=== PATIENT | male | born 1960 | race African-American/Black ===

== ENCOUNTER 2016-03-02 15:45 | Inpatient (IN) | payer OTHER ==
[2016-03-02 16:38] VITALS: BMI 35.7
--- NOTE | 2016-03-02 19:11 | HP ---
COWS - Scale Resting Pulse: 0= ID 80 or Below Sweatin= Chills/Flushing Restless Observation: 3= Extraneous Movement Pupil Size: 0= Normal to Room Light Bone or Joint Aches: 2= Severe Diffuse Aches Runny Nose/ Eye Tearin= Nasal Congestion GI Upset > 30mins: 2= Nausea/Diarrhea Tremor Observation: 2= Slight Tremor Visible Yawning Observation: 0= None Anxiety or Irritability: 2=Irritable/Anxious Goose Flesh Skin: 0=Smooth Skin COWS Score: 13 CIWA Score - CIWA Score Nausea/Vomitin-Mild Nausea/No Vomiting Muscle Tremors: 4-Moderate,w/Arms Extend Anxiety: 4-Mod. Anxious/Guarded Agitation: 4-Moderately Restless Paroxysmal Sweats: 1-Minimal Palms Moist Orientation: 0-Oriented Tacttile Disturbances: 0-None Auditory Disturbances: 0-None Visual Disturbances: 0-None Headache: 2-Mild CIWA-Ar Total Score: 16 Admission ROS BHS - HPI Chief Complaint: withdrawal sx Allergies/Adverse Reactions: Allergies Allergy/AdvReac Type Severity Reaction Status Date / Time No Known Drug Allergies Allergy Unknown Verified 11/03/15 20:49 History of Present Illness: 55 years old male with long history of alcohol opiate nicotine dependence, history of hypertension, denies mental illness is admitted to detox Exam Limitations: No Limitations - Ebola screening Have you traveled outside of the country in the last 21 days: No Have you had contact with anyone from an Ebola affected area: No Have you been sick,other than usual withdrawal symptoms: No Do you have a fever: No - Review of Systems Constitutional: Chills, Changes in sleep, Weight Stable EENT: reports: No Symptoms Reported Respiratory: reports: No Symptoms reported Cardiac: reports: No Symptoms Reported GI: reports: Diarrhea, Nausea, Poor Fluid Intake, Abdominal cramping : reports: No Symptoms Reported Musculoskeletal: reports: Back Pain, Joint Pain, Muscle Pain, Neck Pain Integumentary: reports: No Symptoms Reported Neuro: reports: Tremors Endocrine: reports: No Symptoms Reported Hematology: reports: No Symptoms Reported Psychiatric: reports: Judgement Intact, Mood/Affect Appropiate Other Systems: Reviewed and Negative Patient History - Patient Medical History Hx Anemia: No Hx Asthma: No Hx Chronic Obstructive Pulmonary Disease (COPD): No Hx Cancer: No Hx Cardiac Disorders: No Hx Congestive Heart Failure: No Hx Hypertension: Yes (last dose "years" ago) Hx Hypercholesterolemia: No Hx Pacemaker: No HX Cerebrovascular Accident: No Hx Seizures: No Hx Dementia: No Hx Diabetes: No Hx Gastrointestinal Disorders: No Hx Liver Disease: No Hx Genitourinary Disorders: No Hx Sexually Transmitted Disorders: No Hx Renal Disease (ESRD): No Hx Thyroid Disease: No Hx Human Immunodeficiency Virus (HIV): No (NEGATIVE 6 MONTHS AGO LAST 2014 NEGATIVE) Hx Hepatitis C: No Hx Depression: No (denies) Hx Suicide Attempt: No Hx Bipolar Disorder: No (denies) Hx Schizophrenia: No - Patient Surgical History Past Surgical History: No Hx Neurologic Surgery: No Hx Cataract Extraction: No Hx Cardiac Surgery: No Hx Lung Surgery: No Hx Breast Surgery: No Hx Breast Biopsy: No Hx Abdominal Surgery: No Hx Appendectomy: No Hx Cholecystectomy: No Hx Genitourinary Surgery: No Hx Orthopedic Surgery: No - PPD History Previous Implant?: Yes Documented Results: Negative w/o proof Implanted On Prior [facility] Admission?: Yes Date: 04/26/15 Results: 0MM PPD to be Administered?: No - Smoking Cessation Smoking history: Current every day smoker Have you smoked in the past 12 months: Yes Aproximately how many cigarettes per day: 20 Cigars Per Day: 0 Hx Chewing Tobacco Use: No Initiated information on smoking cessation: Yes 'Breaking Loose' booklet given: 03/02/16 - Substance & Tx. History Hx Alcohol Use: Yes Hx Substance Use: Yes Substance Use Type: Alcohol, Cocaine, Heroin Hx Substance Use Treatment: Yes - Substances Abused Alcohol Route: Oral Frequency: Daily Amount used: [id number] beer Age of first use: 14 Date of Last Use: 03/01/16 Heroin Route: Inhalation Frequency: Daily Amount used: 6 bags Age of first use: 16 Date of Last Use: 03/02/16 Family Disease History - Family Disease History Family Disease History: Diabetes: Father () Admission Physical Exam BHS - Vital Signs Vital Signs: Vital Signs - 24 hr 03/02/16 16:34 Temperature 97.1 F L Pulse Rate 71 Respiratory 18 Rate Blood Pressure 115/84 - Physical General Appearance: Yes: Nourished, Appropriately Dressed, Moderate Distress HEENTM: Yes: Hearing grossly Normal, Normal ENT Inspection, Normocephalic, Normal Voice Respiratory: Yes: Chest Non-Tender, Lungs Clear, Normal Breath Sounds, No Respiratory Distress, No Accessory Muscle Use Neck: Yes: Supple, Trachea in good position Breast: Yes: Breasts Symetrical Cardiology: Yes: Regular Rhythm, Regular Rate, S1, S2 Abdominal: Yes: Non Tender, Soft Genitourinary: Yes: Within Normal Limits Back: Yes: Normal Inspection Musculoskeletal: Yes: full range of Motion, Gait Steady, Back pain, Muscle Pain Extremities: Yes: Normal Range of Motion, Non-Tender, Tremors, Other (history of knee pain treated with neurontin last dose "many months ago") Neurological: Yes: Alert, Motor Strength 5/5, Normal Mood/Affect, Normal Response Integumentary: Yes: Warm, Moist Lymphatic: Yes: Within Normal Limits - Diagnostic (1) Alcohol dependence with uncomplicated withdrawal Current Visit: Yes Status: Acute (2) Opioid dependence with withdrawal Current Visit: Yes Status: Acute (3) Hypertension Current Visit: Yes Status: Acute Qualifiers: Hypertension type: essential hypertension Qualified Code(s): I10 - Essential (primary) hypertension Comment: not on medication bp 115/84 upon admission (4) Nicotine dependence Current Visit: Yes Status: Acute Qualifiers: Nicotine product type: cigarettes Substance use status: in withdrawal Qualified Code(s): F17.213 - Nicotine dependence, cigarettes, with withdrawal Cleared for Admission S - Detox or Rehab [facility] Level of Care: Medically Managed Detox Regimen/Protocol: Methadone/Librium [facility] Breath Alcohol Content Breath Alcohol Content: 0 Urine Drug Screen - Results Drug Screen Negative: No Urine Drug Screen Results: ANTHONY-Cocaine, OPI-Opiates
[2016-03-02] MEDS ORDERED: MAGNESIUM HYDROX 2400MG/30ML ORAL SUSPENSION 30 ML CUP PO PRN (19:21)
[2016-03-02] MEDS ORDERED: NICOTINE POLACRILEX 2 MG GUM BC PRN (19:21)
[2016-03-02] MEDS ORDERED: IBUPROFEN 400 MG TABLET (FP) PO PRN (19:21)
[2016-03-02] MEDS ORDERED: chlordiazePOXIDE HCL 25 MG CAPSULE PO PRN (19:21)
[2016-03-02] MEDS ORDERED: chlordiazePOXIDE HCL 25 MG CAPSULE PO ONE (19:21)
[2016-03-02] MEDS ORDERED: METHADONE HCL 10 MG TABLET (FOR DETOX USE ONLY) PO ONE ×2 (19:21→23:00)
[2016-03-02] MEDS ORDERED: MAG HYDROX/AL HYDROX/SIMETH 30 ML UNIT-DOSE CUP PO PRN (19:21)
[2016-03-02] MEDS ORDERED: MENTHOL/PHENOL 1 EACH UD MM PRN (19:21)
[2016-03-02] MEDS ORDERED: guaiFENesin/D-METHORPHAN HB 10 ML UNIT-DOSE CUPS PO PRN (19:21)
[2016-03-02] MEDS ORDERED: P-EPHED 60MG/TRIPROLIDI 2.5MG TABLET PO PRN (19:21)
[2016-03-02] MEDS ORDERED: MAGNESIUM CITRATE 300 ML BOTTLE PO PRN (19:21)
[2016-03-02] MEDS ORDERED: ACETAMINOPHEN 325 MG TABLET (FP) PO PRN (19:21)
[2016-03-02] MEDS ORDERED: LOPERAMIDE HCL 2 MG CAPSULE PO PRN (19:21)
[2016-03-02] MEDS: THIAMINE HCL 100 MG TABLET (FP) PO SCH (22:05)
[2016-03-02] MEDS: chlordiazePOXIDE HCL 25 MG CAPSULE PO SCH (22:05)
[2016-03-02] MEDS: diphenhydrAMINE HCL 50 MG CAPSULE PO PRN (22:06)
[2016-03-02 23:37] LABS: URINE APPEARANCE CLEAR; URINE BILIRUBIN NEGATIVE (NEGATIVE); URINE COLOR YELLOW; URINE GLUCOSE (UA) NEGATIVE (NEGATIVE); URINE KETONE NEGATIVE (NEGATIVE); URINE LEUK ESTERASE NEGATIVE (NEGATIVE); URINE NITRITE NEGATIVE (NEGATIVE); URINE PROTEIN NEGATIVE (NEGATIVE); URINE UROBILINOGEN NEGATIVE E.U./dl (0.2-1.0)
[2016-03-02 23:39] LABS: URINE BLOOD 1+ (NEGATIVE)
[2016-03-03 00:16] LABS: URINE MUCUS RARE; URINE RBC <1 /hpf (0-3); URINE WBC 1 /hpf (3-5)
[2016-03-03] MEDS: chlordiazePOXIDE HCL 25 MG CAPSULE PO SCH ×4 (06:04→22:07)
[2016-03-03] MEDS ORDERED: METHADONE HCL 10 MG TABLET (FOR DETOX USE ONLY) PO SCH (10:00)
[2016-03-03 10:13] LABS: MCH 28.3 pg (25.7-33.7); MCHC 32.4 g/dl (32.0-35.9); MEAN CELL VOLUME 87.3 fl (80-96); MEAN PLT VOLUME 8.4 fl (7.5-11.1); PLATELET COUNT 232 K/MM3 (134-434); RDW 14.2 % (11.9-15.9); WHITE BLOOD COUNT 4.5 K/mm3 (4.0-10.0)
[2016-03-03 10:24] LABS: ALBUMIN 3.3 g/dl (3.4-5.0); ALK PHOS 63 U/L (45-117); ANION GAP 9 (8-16); BILIRUBIN,TOTAL 0.5 mg/dL (0.2-1.0); CALCIUM 8.2 mg/dL (8.5-10.1); CO2 26 mmol/L (21-32); GLUCOSE,RANDOM 90 mg/dL (74-106); SGOT/AST 13 U/L (15-37); SGPT/ALT 17 U/L (12-78); TOT PROT 6.2 g/dl (6.4-8.2)
[2016-03-03] MEDS: PRENATAL VITAMINS W/ FOLIC ACID TABLET (FP) PO SCH (10:44)
[2016-03-03] MEDS: NICOTINE 21 MG/24 HOURS TOPICAL PATCH TD SCH (10:45)
--- NOTE | 2016-03-03 11:58 | PN ---
[facility] CIWA - CIWA Score Nausea/Vomitin-No Nausea/No Vomiting Muscle Tremors: 4-Moderate,w/Arms Extend Anxiety: 4-Mod. Anxious/Guarded Agitation: 4-Moderately Restless Paroxysmal Sweats: 1-Minimal Palms Moist Orientation: 0-Oriented Tacttile Disturbances: 3-Moderate Itch/Numb/Burn Auditory Disturbances: 0-None Visual Disturbances: 0-None Headache: 0-None Present CIWA-Ar Total Score: 16 S COWS - Scale Resting Pulse: 0= [place] 80 or Below Sweatin= Chills/Flushing Restless Observation: 3= Extraneous Movement Pupil Size: 2= Moderately Dilated Bone or Joint Aches: 4=Acute Joint/Muscle Pain Runny Nose/ Eye Tearin= Nasal Congestion GI Upset > 30mins: 1= Stomach Cramp Tremor Observation of Outstretched Hands: 2= Slight Tremor Visible Yawning Observation: 1= 1-2x During Session Anxiety or Irritability: 2=Irritable/Anxious Goose Flesh Skin: 0=Smooth Skin COWS Score: 17 S Progress Note (SOAP) Subjective: ANXIETY,IRRITABILITY, SWEATS,MUSCLE ACHES. Objective: 03/03/16 11:54 Vital Signs Temperature 97.5 F L 03/03/16 10:38 Pulse Rate 72 03/03/16 10:38 Respiratory Rate 20 03/03/16 10:38 Blood Pressure 119/82 03/03/16 10:38 O2 Sat by Pulse Oximetry (%) Laboratory Last Values WBC 4.5 K/mm3 (4.0-10.0) 03/03/16 07:15 RBC 4.13 M/mm3 (4.00-5.60) 03/03/16 07:15 Hgb 11.7 GM/dL (11.7-16.9) 03/03/16 07:15 Hct 36.0 % (35.4-49) 03/03/16 07:15 MCV 87.3 fl (80-96) 03/03/16 07:15 MCHC 32.4 g/dl (32.0-35.9) 03/03/16 07:15 RDW 14.2 % (11.9-15.9) 03/03/16 07:15 Plt Count 232 K/MM3 (134-434) 03/03/16 07:15 MPV 8.4 fl (7.5-11.1) D 03/03/16 07:15 Sodium 142 mmol/L (136-145) 03/03/16 07:15 Potassium 4.0 mmol/L (3.5-5.1) 03/03/16 07:15 Chloride 107 mmol/L (98-107) 03/03/16 07:15 Carbon Dioxide 26 mmol/L (21-32) 03/03/16 07:15 Anion Gap 9 (8-16) 03/03/16 07:15 BUN 15 mg/dL (7-18) D 03/03/16 07:15 Creatinine 1.0 mg/dL (0.7-1.3) 03/03/16 07:15 Creat Clearance w eGFR > 60 (>60) 03/03/16 07:15 Random Glucose 90 mg/dL (74-106) 03/03/16 07:15 Calcium 8.2 mg/dL (8.5-10.1) L 03/03/16 07:15 Total Bilirubin 0.5 mg/dL (0.2-1.0) 03/03/16 07:15 AST 13 U/L (15-37) L D 03/03/16 07:15 ALT 17 U/L (12-78) D 03/03/16 07:15 Alkaline Phosphatase 63 U/L (45-117) D 03/03/16 07:15 Total Protein 6.2 g/dl (6.4-8.2) L 03/03/16 07:15 Albumin 3.3 g/dl (3.4-5.0) L 03/03/16 07:15 Urine Color Yellow 03/02/16 22:28 Urine Appearance Clear 03/02/16 22:28 Urine pH 5.0 (5.0-8.0) 03/02/16 22:28 Ur Specific [place] 1.028 (1.001-1.035) 03/02/16 22:28 Urine Protein Negative (NEGATIVE) 03/02/16 22:28 Urine Glucose (UA) Negative (NEGATIVE) 03/02/16 22:28 Urine Ketones Negative (NEGATIVE) 03/02/16 22:28 Urine Blood 1+ (NEGATIVE) H 03/02/16 22:28 Urine Nitrite Negative (NEGATIVE) 03/02/16 22:28 Urine Bilirubin Negative (NEGATIVE) 03/02/16 22:28 Urine Urobilinogen Negative E.U./dl (0.2-1.0) 03/02/16 22:28 Ur Leukocyte Esterase Negative (NEGATIVE) 03/02/16 22:28 Urine RBC <1 /hpf (0-3) 03/02/16 22:28 Urine WBC 1 /hpf (3-5) 03/02/16 22:28 Ur Epithelial Cells Rare /hpf (FEW) 03/02/16 22:28 Urine Mucus Rare 03/02/16 22:28 Assessment: 03/03/16 11:54 WITHDRAWAL SX Plan: CONTINUE DETOX
--- NOTE | 2016-03-03 13:36 | DS ---
[facility] Detox Discharge Summary Admission Date: 03/02/16 Discharge Date: 03/03/16 - History Present History: Alcohol Dependence, Opioid Dependence Additional Comments: PT DECLINED TO CONTINUE WITH DETOX. ALERT O X 3. NAD. Pertinent Past History: HTN - Physical Exam Results Vital Signs: Vital Signs Temperature 97.5 F L 03/03/16 10:38 Pulse Rate 72 03/03/16 10:38 Respiratory Rate 20 03/03/16 10:38 Blood Pressure 119/82 03/03/16 10:38 O2 Sat by Pulse Oximetry (%) Pertinent Admission Physical Exam Findings: WITHDRAWAL SX - Medication Discharge Medications: Ambulatory Orders Gabapentin 600 mg PO TID #90 tablet 03/03/16 Quetiapine Fumarate [Seroquel -] 25 mg PO HS #30 tablet 03/03/16 - Diagnosis (1) Alcohol dependence with uncomplicated withdrawal Current Visit: Yes Status: Acute (2) Hypertension Current Visit: Yes Status: Chronic Qualifiers: Hypertension type: essential hypertension Qualified Code(s): I10 - Essential (primary) hypertension (3) Nicotine dependence Current Visit: Yes Status: Chronic Qualifiers: Nicotine product type: cigarettes Substance use status: in withdrawal Qualified Code(s): F17.213 - Nicotine dependence, cigarettes, with withdrawal (4) Opioid dependence with withdrawal Current Visit: Yes Status: Acute - AMA Did Patient Leave Against Medical Advice: Yes (AMA)
--- NOTE | 2016-03-03 14:25 | EKG ---
Test Reason : Blood Pressure : / mmHG Vent. Rate : 083 BPM Atrial Rate : 083 BPM P-R Int : 182 ms QRS Dur : 090 ms QT Int : 376 ms P-R-T Axes : 071 049 043 degrees QTc Int : 441 ms NORMAL SINUS RHYTHM NORMAL ECG Confirmed by SCOTT PELAEZ MD ([id number]) on 03/03/2016 2:25:31 PM Referred By: Confirmed By:SCOTT PELAEZ MD
[2016-03-03] MEDS: GABAPENTIN 300 MG CAPSULE (FP) PO SCH ×2 (14:39→22:07)
[2016-03-03] MEDS: CYCLOBENZAPRINE HCL 10 MG TABLET (FP) PO SCH ×2 (14:39→22:07)
--- NOTE | 2016-03-03 15:52 | CONSULT ---
[facility] Psychiatric Consult - Data Date of interview: 03/03/16 Admission source: [facility] Identifying data: This is 55 years old male with history of Bip[olar disorder intoxicated with: Alcohol, Opioids, Cocaine and Nicotine Substance Abuse History: - Smoking Cessation. Smoking history: Current every day smoker. Have you smoked in the past 12 months: Yes. Aproximately how many cigarettes per day: 20. Cigars Per Day: 0. Hx Chewing Tobacco Use: No. Initiated information on smoking cessation: Yes. 'Breaking Loose' booklet given : 03/02/16. - Substance & Tx. History. Hx Alcohol Use: Yes. Hx Substance Use : Yes. Substance Use Type: Alcohol, Cocaine, Heroin. Hx Substance Use Treatment: Yes. - Substances Abused. Alcohol. Route: Oral. Frequency: Daily. Amount used: [id number] beer. Age of first use: 14. Date of Last Use: . Heroin. Route: Inhalation. Frequency: Daily. Amount used: 6 bags. Age of first use: 16. Date of Last Use: 03/02/16 Medical History: HTN Psychiatric History: Patient reports having Bipolar disorder with most recent psychiatric admission on 2016 at [facility], reports taking prior to admission: Gabapentin 600mg po tid. Seroquel 25mg po qhs Physical/Sexual Abuse/Trauma History: Denies Additional Comment: Gabapentin 600mg po tid. Seroquel 25mg po qhs Mental Status Exam - Mental Status Exam Alert and Oriented to: Person Cognitive Function: Fair Patient Appearance: Unkempt Mood: Sad Affect: Flat Patient Behavior: Sedated Speech Pattern: Delayed Voice Loudness: Mildly Soft/Quiet Thought Process: Circumstantial Thought Disorder: Being Controlled Hallucinations: Denies Suicidal Ideation: Denies Homicidal Ideation: Denies Insight/Judgement: Fair Sleep: Difficulty falling asleep Appetite: Fair Muscle strength/Tone: Mild Hypotonicity Gait/Station: Shuffling Additional Comments: Gabapentin 600mg po tid. Seroquel 25mg po qhs Psychiatric Findings - Problem List ([place] 1, 2,3) (1) Alcohol dependence with uncomplicated withdrawal Current Visit: Yes Status: Acute (2) Opioid dependence with withdrawal Current Visit: Yes Status: Acute (3) Nicotine dependence Current Visit: Yes Status: Chronic Qualifiers: Nicotine product type: cigarettes Substance use status: in withdrawal Qualified Code(s): F17.213 - Nicotine dependence, cigarettes, with withdrawal (4) Cocaine dependence Current Visit: No Status: Acute (5) Drug-induced mood disorder Current Visit: No Status: Acute (6) Alcohol dependence Current Visit: No Status: Chronic (7) Bipolar 1 disorder Current Visit: No Status: Chronic (8) Opioid dependence Current Visit: No Status: Chronic - Initial Treatment Plan Initial Treatment Plan: Gabapentin 600mg po tid. Seroquel 25mg po qhs
[2016-03-03] MEDS: THIAMINE HCL 100 MG TABLET (FP) PO SCH (22:07)
[2016-03-03] MEDS: QUEtiapine FUMARATE 25 MG TABLET (FP) PO SCH (22:07)
[2016-03-03] MEDS: diphenhydrAMINE HCL 50 MG CAPSULE PO PRN (22:08)
[2016-03-04] MEDS: chlordiazePOXIDE HCL 25 MG CAPSULE PO SCH ×3 (06:07→17:52)
[2016-03-04] MEDS: CYCLOBENZAPRINE HCL 10 MG TABLET (FP) PO SCH ×3 (06:11→22:04)
[2016-03-04] MEDS: GABAPENTIN 300 MG CAPSULE (FP) PO SCH ×3 (06:11→22:03)
[2016-03-04] MEDS ORDERED: METHADONE HCL 5 MG TABLET (FOR DETOX USE ONLY) PO SCH (10:00)
[2016-03-04] MEDS: PRENATAL VITAMINS W/ FOLIC ACID TABLET (FP) PO SCH (10:20)
[2016-03-04] MEDS: NICOTINE 21 MG/24 HOURS TOPICAL PATCH TD SCH (10:20)
--- NOTE | 2016-03-04 10:59 | PN ---
[facility] CIWA - CIWA Score Nausea/Vomitin-No Nausea/No Vomiting Muscle Tremors: 4-Moderate,w/Arms Extend Anxiety: 4-Mod. Anxious/Guarded Agitation: 4-Moderately Restless Paroxysmal Sweats: 2 Orientation: 0-Oriented Tacttile Disturbances: 3-Moderate Itch/Numb/Burn Auditory Disturbances: 0-None Visual Disturbances: 0-None Headache: 0-None Present CIWA-Ar Total Score: 17 BHS COWS - Scale Resting Pulse: 0= [place] 80 or Below Sweatin= Chills/Flushing Restless Observation: 3= Extraneous Movement Pupil Size: 2= Moderately Dilated Bone or Joint Aches: 4=Acute Joint/Muscle Pain Runny Nose/ Eye Tearin= Nasal Congestion GI Upset > 30mins: 1= Stomach Cramp Tremor Observation of Outstretched Hands: 1= Tremor [place], Not Seen Yawning Observation: 1= 1-2x During Session Anxiety or Irritability: 2=Irritable/Anxious Goose Flesh Skin: 0=Smooth Skin COWS Score: 16 [facility] Progress Note (SOAP) Subjective: ANXIETY,RESTLESSNESS,MUSCLE ACHES,SWEATS, Objective: 03/04/16 10:58 Vital Signs Temperature 96.5 F L 03/04/16 09:57 Pulse Rate 74 03/04/16 09:57 Respiratory Rate 18 03/04/16 09:57 Blood Pressure 104/73 03/04/16 09:57 O2 Sat by Pulse Oximetry (%) Laboratory Last Values WBC 4.5 K/mm3 (4.0-10.0) 03/03/16 07:15 RBC 4.13 M/mm3 (4.00-5.60) 03/03/16 07:15 Hgb 11.7 GM/dL (11.7-16.9) 03/03/16 07:15 Hct 36.0 % (35.4-49) 03/03/16 07:15 MCV 87.3 fl (80-96) 03/03/16 07:15 MCHC 32.4 g/dl (32.0-35.9) 03/03/16 07:15 RDW 14.2 % (11.9-15.9) 03/03/16 07:15 Plt Count 232 K/MM3 (134-434) 03/03/16 07:15 MPV 8.4 fl (7.5-11.1) D 03/03/16 07:15 Sodium 142 mmol/L (136-145) 03/03/16 07:15 Potassium 4.0 mmol/L (3.5-5.1) 03/03/16 07:15 Chloride 107 mmol/L (98-107) 03/03/16 07:15 Carbon Dioxide 26 mmol/L (21-32) 03/03/16 07:15 Anion Gap 9 (8-16) 03/03/16 07:15 BUN 15 mg/dL (7-18) D 03/03/16 07:15 Creatinine 1.0 mg/dL (0.7-1.3) 03/03/16 07:15 Creat Clearance w eGFR > 60 (>60) 03/03/16 07:15 Random Glucose 90 mg/dL (74-106) 03/03/16 07:15 Calcium 8.2 mg/dL (8.5-10.1) L 03/03/16 07:15 Total Bilirubin 0.5 mg/dL (0.2-1.0) 03/03/16 07:15 AST 13 U/L (15-37) L D 03/03/16 07:15 ALT 17 U/L (12-78) D 03/03/16 07:15 Alkaline Phosphatase 63 U/L (45-117) D 03/03/16 07:15 Total Protein 6.2 g/dl (6.4-8.2) L 03/03/16 07:15 Albumin 3.3 g/dl (3.4-5.0) L 03/03/16 07:15 Urine Color Yellow 03/02/16 22:28 Urine Appearance Clear 03/02/16 22:28 Urine pH 5.0 (5.0-8.0) 03/02/16 22:28 Ur Specific [place] 1.028 (1.001-1.035) 03/02/16 22:28 Urine Protein Negative (NEGATIVE) 03/02/16 22:28 Urine Glucose (UA) Negative (NEGATIVE) 03/02/16 22:28 Urine Ketones Negative (NEGATIVE) 03/02/16 22:28 Urine Blood 1+ (NEGATIVE) H 03/02/16 22:28 Urine Nitrite Negative (NEGATIVE) 03/02/16 22:28 Urine Bilirubin Negative (NEGATIVE) 03/02/16 22:28 Urine Urobilinogen Negative E.U./dl (0.2-1.0) 03/02/16 22:28 Ur Leukocyte Esterase Negative (NEGATIVE) 03/02/16 22:28 Urine RBC <1 /hpf (0-3) 03/02/16 22:28 Urine WBC 1 /hpf (3-5) 03/02/16 22:28 Ur Epithelial Cells Rare /hpf (FEW) 03/02/16 22:28 Urine Mucus Rare 03/02/16 22:28 RPR Titer Nonreactive (NONREACTIVE) 03/03/16 07:15 Assessment: 03/04/16 10:58 WITHDRAWAL SX Plan: CONTINUE DETOX
[2016-03-04] MEDS: THIAMINE HCL 100 MG TABLET (FP) PO SCH (22:03)
[2016-03-04] MEDS: chlordiazePOXIDE 5 MG CAPSULE PO SCH (22:03)
[2016-03-04] MEDS: QUEtiapine FUMARATE 25 MG TABLET (FP) PO SCH (22:04)
[2016-03-05] MEDS: chlordiazePOXIDE 5 MG CAPSULE PO SCH ×3 (05:58→17:54)
[2016-03-05] MEDS: GABAPENTIN 300 MG CAPSULE (FP) PO SCH ×3 (05:58→22:34)
[2016-03-05] MEDS: CYCLOBENZAPRINE HCL 10 MG TABLET (FP) PO SCH ×3 (05:58→22:35)
[2016-03-05] MEDS ORDERED: METHADONE HCL 5 MG TABLET (FOR DETOX USE ONLY) PO SCH (09:20)
[2016-03-05] MEDS: NICOTINE 21 MG/24 HOURS TOPICAL PATCH TD SCH (10:28)
[2016-03-05] MEDS: PRENATAL VITAMINS W/ FOLIC ACID TABLET (FP) PO SCH (10:28)
--- NOTE | 2016-03-05 11:05 | PN ---
[facility] Progress Note (SOAP) Subjective: SWEATING,INTERRUPTED SLEEP,RESTLESS Objective: 03/05/16 11:04 Vital Signs - 8 hr 03/05/16 03/05/16 03/05/16 03:24 06:31 10:59 Temperature 97.2 F L 96.7 F L Pulse Rate 66 67 Respiratory 18 18 18 Rate Blood Pressure 131/82 120/91 Laboratory Tests 03/02/16 03/03/16 03/03/16 22:28 07:15 07:15 WBC 4.5 RBC 4.13 Hgb 11.7 Hct 36.0 MCV 87.3 MCHC 32.4 RDW 14.2 Plt Count 232 MPV 8.4 D Sodium 142 Potassium 4.0 Chloride 107 Carbon Dioxide 26 Anion Gap 9 BUN 15 D Creatinine 1.0 Creat Clearance w eGFR > 60 Random Glucose 90 Calcium 8.2 L Total Bilirubin 0.5 AST 13 L D ALT 17 D Alkaline Phosphatase 63 D Total Protein 6.2 L Albumin 3.3 L Urine Color Yellow Urine Appearance Clear Urine pH 5.0 Ur Specific [place] 1.028 Urine Protein Negative Urine Glucose (UA) Negative Urine Ketones Negative Urine Blood 1+ H Urine Nitrite Negative Urine Bilirubin Negative Urine Urobilinogen Negative Ur Leukocyte Esterase Negative Urine RBC <1 Urine WBC 1 Ur Epithelial Cells Rare Urine Mucus Rare RPR Titer 03/03/16 07:15 WBC RBC Hgb Hct MCV MCHC RDW Plt Count MPV Sodium Potassium Chloride Carbon Dioxide Anion Gap BUN Creatinine Creat Clearance w eGFR Random Glucose Calcium Total Bilirubin AST ALT Alkaline Phosphatase Total Protein Albumin Urine Color Urine Appearance Urine pH Ur Specific [place] Urine Protein Urine Glucose (UA) Urine Ketones Urine Blood Urine Nitrite Urine Bilirubin Urine Urobilinogen Ur Leukocyte Esterase Urine RBC Urine WBC Ur Epithelial Cells Urine Mucus RPR Titer Nonreactive LABS NOTED Assessment: 03/05/16 11:04 WITHDRAWAL SX. Plan: CONTINUE DETOX
[2016-03-05] MEDS: THIAMINE HCL 100 MG TABLET (FP) PO SCH (22:34)
[2016-03-05] MEDS: chlordiazePOXIDE HCL 10 MG CAPSULE PO SCH (22:35)
[2016-03-05] MEDS: QUEtiapine FUMARATE 25 MG TABLET (FP) PO SCH (22:35)
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
--- NOTE | 2016-03-06 00:06 | DS ---
[facility] Detox Discharge Summary Admission Date: 03/02/16 Discharge Date: 03/06/16 - History Present History: Alcohol Dependence, Opioid Dependence Pertinent Past History: HTN NICOTINE DEPENDENCE - Physical Exam Results Vital Signs: Vital Signs Temperature 98.8 F 03/05/16 22:58 Pulse Rate 85 03/05/16 22:58 Respiratory Rate 19 03/05/16 22:58 Blood Pressure 129/75 03/05/16 22:58 O2 Sat by Pulse Oximetry (%) Pertinent Admission Physical Exam Findings: WITHDRAWAL SX'S - Medication Discharge Medications: Ambulatory Orders Gabapentin 600 mg PO TID #90 tablet 03/03/16 Quetiapine Fumarate [Seroquel -] 25 mg PO HS #30 tablet 03/03/16 - Diagnosis (1) Alcohol dependence with uncomplicated withdrawal Current Visit: Yes Status: Acute (2) Opioid dependence with withdrawal Current Visit: Yes Status: Acute (3) Hypertension Current Visit: Yes Status: Chronic Qualifiers: Hypertension type: essential hypertension Qualified Code(s): I10 - Essential (primary) hypertension (4) Nicotine dependence Current Visit: Yes Status: Chronic Qualifiers: Nicotine product type: cigarettes Substance use status: in withdrawal Qualified Code(s): F17.213 - Nicotine dependence, cigarettes, with withdrawal (5) Drug-induced mood disorder Current Visit: No Status: Acute - AMA Did Patient Leave Against Medical Advice: Yes
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
[2016-03-06] MEDS: GABAPENTIN 300 MG CAPSULE (FP) PO SCH ×3 (05:39→22:17)
[2016-03-06] MEDS: CYCLOBENZAPRINE HCL 10 MG TABLET (FP) PO SCH ×3 (05:39→22:17)
[2016-03-06] MEDS: chlordiazePOXIDE HCL 10 MG CAPSULE PO SCH ×3 (05:39→17:22)
[2016-03-06] MEDS ORDERED: METHADONE HCL 10 MG TABLET (FOR DETOX USE ONLY) PO SCH (10:00)
[2016-03-06] MEDS: NICOTINE 21 MG/24 HOURS TOPICAL PATCH TD SCH (10:19)
[2016-03-06] MEDS: PRENATAL VITAMINS W/ FOLIC ACID TABLET (FP) PO SCH (10:19)
--- NOTE | 2016-03-06 11:18 | PN ---
[facility] Progress Note (SOAP) Subjective: SWEATING,INTERRUPTED SLEEP,RESTLESS Objective: 03/06/16 11:17 Vital Signs - 8 hr 03/06/16 03/06/16 03/06/16 03:30 06:00 10:00 Temperature 97.9 F 99.0 F Pulse Rate 65 88 Respiratory 18 18 18 Rate Blood Pressure 103/57 122/72 Laboratory Tests 03/02/16 03/03/16 03/03/16 22:28 07:15 07:15 WBC 4.5 RBC 4.13 Hgb 11.7 Hct 36.0 MCV 87.3 MCHC 32.4 RDW 14.2 Plt Count 232 MPV 8.4 D Sodium 142 Potassium 4.0 Chloride 107 Carbon Dioxide 26 Anion Gap 9 BUN 15 D Creatinine 1.0 Creat Clearance w eGFR > 60 Random Glucose 90 Calcium 8.2 L Total Bilirubin 0.5 AST 13 L D ALT 17 D Alkaline Phosphatase 63 D Total Protein 6.2 L Albumin 3.3 L Urine Color Yellow Urine Appearance Clear Urine pH 5.0 Ur Specific [place] 1.028 Urine Protein Negative Urine Glucose (UA) Negative Urine Ketones Negative Urine Blood 1+ H Urine Nitrite Negative Urine Bilirubin Negative Urine Urobilinogen Negative Ur Leukocyte Esterase Negative Urine RBC <1 Urine WBC 1 Ur Epithelial Cells Rare Urine Mucus Rare RPR Titer 03/03/16 07:15 WBC RBC Hgb Hct MCV MCHC RDW Plt Count MPV Sodium Potassium Chloride Carbon Dioxide Anion Gap BUN Creatinine Creat Clearance w eGFR Random Glucose Calcium Total Bilirubin AST ALT Alkaline Phosphatase Total Protein Albumin Urine Color Urine Appearance Urine pH Ur Specific [place] Urine Protein Urine Glucose (UA) Urine Ketones Urine Blood Urine Nitrite Urine Bilirubin Urine Urobilinogen Ur Leukocyte Esterase Urine RBC Urine WBC Ur Epithelial Cells Urine Mucus RPR Titer Nonreactive LABS NOTED Assessment: 03/06/16 11:18 WITHDRAWAL SX. Plan: CONTINUE DETOX
[2016-03-06] MEDS: THIAMINE HCL 100 MG TABLET (FP) PO SCH (22:16)
[2016-03-06] MEDS: QUEtiapine FUMARATE 25 MG TABLET (FP) PO SCH (22:17)
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
[2016-03-07 05:21] VITALS: BP 137/72; PULSE 80; TEMP 97.6
[2016-03-07] MEDS: CYCLOBENZAPRINE HCL 10 MG TABLET (FP) PO SCH (06:00)
[2016-03-07] MEDS: GABAPENTIN 300 MG CAPSULE (FP) PO SCH (06:00)
[2016-03-07] MEDS ORDERED: METHADONE HCL 5 MG TABLET (FOR DETOX USE ONLY) PO SCH (06:00)
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
--- NOTE | 2016-03-07 08:36 | DS ---
[facility] Detox Discharge Summary Admission Date: 03/02/16 Discharge Date: 03/07/16 - History Present History: Alcohol Dependence, Cocaine Dependence, Opioid Dependence - Physical Exam Results Vital Signs: Vital Signs Temperature 97.6 F 03/07/16 05:20 Pulse Rate 80 03/07/16 05:20 Respiratory Rate 18 03/07/16 05:20 Blood Pressure 137/72 03/07/16 05:20 O2 Sat by Pulse Oximetry (%) - Treatment Hospital Course: Detox Protocol Followed, Detoxed Safely, Responded well, Discharged Condition Good, Rehab Referral Accepted - Medication Discharge Medications: Ambulatory Orders Gabapentin 600 mg PO TID #90 tablet 03/03/16 Quetiapine Fumarate [Seroquel -] 25 mg PO HS #30 tablet 03/03/16 - Diagnosis (1) Alcohol dependence with uncomplicated withdrawal Current Visit: Yes Status: Chronic (2) Opioid dependence with withdrawal Current Visit: Yes Status: Chronic (3) Hypertension Current Visit: Yes Status: Chronic Qualifiers: Hypertension type: essential hypertension Qualified Code(s): I10 - Essential (primary) hypertension (4) Nicotine dependence Current Visit: Yes Status: Chronic Qualifiers: Nicotine product type: cigarettes Substance use status: in withdrawal Qualified Code(s): F17.213 - Nicotine dependence, cigarettes, with withdrawal (5) Cocaine dependence Current Visit: Yes Status: Chronic Qualifiers: Substance use status: uncomplicated Qualified Code(s): F14.20 - Cocaine dependence, uncomplicated (6) Drug-induced mood disorder Current Visit: No Status: Acute (7) Head contusion Current Visit: No Status: Acute (8) Headache Current Visit: Yes Status: Chronic (9) Alcohol dependence Current Visit: No Status: Chronic (10) Bipolar 1 disorder Current Visit: No Status: Chronic (11) Opioid dependence Current Visit: No Status: Chronic (12) Bipolar disorder Current Visit: No Status: Suspected - AMA Did Patient Leave Against Medical Advice: No
== END 2016-03-07 09:40 | disposition home or self-care (01) | DRG 773 ==
LOC: YASAS 15:45 → Y3N 19:39 → Y6N 03-03 12:11 → Y3N 03-03 13:39 → Y6N 03-06 00:39
PROVIDERS: ADMIT Internal Medicine; ATTEND Internal Medicine
PROC: HZ2ZZZZ Detoxification Services for Substance Abuse Treatment (ICD-10-PCS; principal; 2016-03-07)
DX: F11.23 Opioid dependence with withdrawal (principal); F10.230 Alcohol dependence with withdrawal, uncomplicated; F14.20 Cocaine dependence, uncomplicated; F17.213 Nicotine dependence, cigarettes, with withdrawal; F19.24 Other psychoactive substance dependence with psychoactive substance-induced mood disorder; F31.89 Other bipolar disorder; I10 Essential (primary) hypertension
CPT/HCPCS: 36415; 80053; 81003; 81015; 85027; 86593; 93005; 93010

== ENCOUNTER 2016-03-07 01:44 | Emergency (ER) | payer OTHER ==
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
[2016-03-07] MEDS ORDERED: OXYCODONE/APAP 5/325MG COMBO TABLET PO ONE (01:57)
[2016-03-07 02:09] VITALS: BP 117/67; PULSE 77; TEMP 98.1; BMI 35.7
[2016-03-07] MEDS ORDERED: ACETAMINOPHEN 325 MG TABLET (FP) PO ONE (02:38)
[2016-03-07] MEDS ORDERED: ALBUTEROL SO4 2.5/IPRATROPIUM 0.5 INH SOL 3 ML VIAL.NEB. NEB ONE (02:46)
[2016-03-07] MEDS ORDERED: ACETAMINOPHEN 325 MG TABLET (FP) ONE (02:51)
== END 2016-03-07 03:36 | disposition other institution (70) ==
LOC: JER 01:44
PROC: 3E0F7GC Introduction of Other Therapeutic Substance into Respiratory Tract, Via Natural or Artificial Opening (ICD-10-PCS; principal; 2016-03-07)
DX: S00.83XA Contusion of other part of head, initial encounter (principal); R06.2 Wheezing; G44.319 Acute post-traumatic headache, not intractable; I10 Essential (primary) hypertension; F31.9 Bipolar disorder, unspecified; F11.20 Opioid dependence, uncomplicated; F14.20 Cocaine dependence, uncomplicated; F10.20 Alcohol dependence, uncomplicated; F17.210 Nicotine dependence, cigarettes, uncomplicated; Y04.0XXA Assault by unarmed brawl or fight, initial encounter; Y93.89 Activity, other specified; Y92.238 Other place in hospital as the place of occurrence of the external cause; Y99.8 Other external cause status
CPT/HCPCS: 70450-TC; 94640; 99281-25; 99282-25

== ENCOUNTER 2018-10-12 14:01 | Inpatient (IN) | payer OTHER ==
[2018-10-12 18:48] VITALS: BMI 34.0
--- NOTE | 2018-10-12 19:22 | HP ---
COWS - Scale Resting Pulse: 0= [place] 80 or Below Sweatin= Chills/Flushing Restless Observation: 1= Difficult to Sit Still Pupil Size: 0= Normal to Room Light Bone or Joint Aches: 4=Acute Joint/Muscle Pain Runny Nose/ Eye Tearin= Constantly Teary/Runny GI Upset > 30mins: 2= Nausea/Diarrhea Tremor Observation: 0= None Yawning Observation: 2= >3x During Session Anxiety or Irritability: 1=Feels Anxious/Irritable Goose Flesh Skin: 0=Smooth Skin COWS Score: 15 CIWA Score Nausea/Vomitin Muscle Tremors: None Anxiety: 1-Mildly Anxious Agitation: 1-Slight > Activity Paroxysmal Sweats: 2 Orientation: 0-Oriented Tacttile Disturbances: 0-None Auditory Disturbances: 0-None Visual Disturbances: 0-None Headache: 0-None Present CIWA-Ar Total Score: 7 - Admission Criteria OASAS Guidelines: Admission for Medically Managed Detox: Requires at least one of the followin. CIWA greater than 12 2. Seizures within the past 24 hours 3. Delirium tremens within the past 24 hours 4. Hallucinations within the past 24 hours 5. Acute intervention needed for co occurring medical disorder 6. Acute intervention needed for co occurring psychiatric disorder 7. Severe withdrawal that cannot be handled at a lower level of care (continued vomiting, continued diarrhea, abnormal vital signs) requiring intravenous medication and/or fluids 8. Admission ROS [facility] Allergies/Adverse Reactions: Allergies Allergy/AdvReac Type Severity Reaction Status Date / Time No Known Drug Allergies Allergy Verified 10/12/18 18:39 History of Present Illness: 58 y.o. pt requesting detox from etoh and heroin use , reports 1x 6-pk /day since 1 year ago , denies seizures or blackouts , denies tremors , current symptoms as above . heroin use since age 22 - current daily use 7-8 bags/day via inhalation , denies IVDU , intermittent periods of sobriety lasting between 6 months and 3 years , most recent relapse 4-5 mo ago, previous admission at this facility in 2017. cocaine : 300-400 $ /week up to 1000$ /week via inhalation benzo - denies bup - reports took yesterday to stop w/d symptoms tobacco : 1/2 ppd PMHX : htn nnon- compliant w/ meds " I haven't been to the dr in months " PShx : denies PSych : depression . Exam Limitations: Clinical Condition - Ebola screening Have you traveled outside of the country in the last 21 days: No (N) Have you had contact with anyone from an Ebola affected area: No Do you have a fever: No - Review of Systems Constitutional: See HPI, Loss of Appetite EENT: reports: Other (glasses - reading) Respiratory: reports: No Symptoms reported Cardiac: reports: No Symptoms Reported GI: reports: See HPI, Nausea, Poor Appetite : reports: No Symptoms Reported Musculoskeletal: reports: See HPI Integumentary: reports: No Symptoms Reported Neuro: reports: No Symptoms reported Endocrine: reports: No Symptoms Reported Psychiatric: reports: Orientated x3, Anxious Patient History - Patient Medical History Hx Anemia: No Hx Asthma: No Hx Chronic Obstructive Pulmonary Disease (COPD): No Hx Cancer: No Hx Cardiac Disorders: No Hx Congestive Heart Failure: No Hx Hypertension: Yes Hx Hypercholesterolemia: No Hx Pacemaker: No HX Cerebrovascular Accident: No Hx Seizures: No Hx Dementia: No Hx Diabetes: No Hx Gastrointestinal Disorders: No Hx Liver Disease: No Hx Genitourinary Disorders: No Hx Sexually Transmitted Disorders: No Hx Renal Disease (ESRD): No Hx Thyroid Disease: No Hx Human Immunodeficiency Virus (HIV): No (NEGATIVE 6 MONTHS AGO LAST 2014 NEGATIVE) Hx Hepatitis C: No Hx Depression: Yes Hx Suicide Attempt: No Hx Bipolar Disorder: No (denies) Hx Schizophrenia: No - Patient Surgical History Past Surgical History: No Hx Neurologic Surgery: No Hx Cataract Extraction: No Hx Cardiac Surgery: No Hx Lung Surgery: No Hx Breast Surgery: No Hx Breast Biopsy: No Hx Abdominal Surgery: No Hx Appendectomy: No Hx Cholecystectomy: No Hx Genitourinary Surgery: No Hx Section: No Hx Orthopedic Surgery: No Anesthesia Reaction: No - PPD History Date: 04/26/15 Results: 0MM - Smoking Cessation Smoking history: Current every day smoker Have you smoked in the past 12 months: Yes Aproximately how many cigarettes per day: 20 Cigars Per Day: 0 Hx Chewing Tobacco Use: No Initiated information on smoking cessation: No - Substances abused Heroin Substance route: Inhalation Frequency: Daily Amount used: 7 to 8 bags Age of first use: 22 Date of last use: 10/11/18 Cocaine Substance route: Inhalation Frequency: 3-6 times per week Amount used: 3 to 4 bags Age of first use: 22 Date of last use: 10/11/18 Alcohol Substance route: Oral Frequency: 3-6 times per week Amount used: 6 packs of beer, half pint of Bacardi on weekend. Age of first use: 14 Date of last use: 10/11/18 Family Disease History - Family Disease History Family Disease History: Diabetes: Father () Admission Physical Exam S - Vital Signs Vital Signs: Vital Signs - 24 hr 10/12/18 18:39 Temperature 97.5 F L Pulse Rate 60 Respiratory 18 Rate Blood Pressure 167/88 - Physical General Appearance: Yes: Moderate Distress, Anxious HEENTM: Yes: EOMI, Hearing grossly Normal, Normocephalic, Nasal Congestion, Rhinorrhea, Muffled/Hoarse Voice, Other (upper and lower dentures) Respiratory: Yes: Lungs Clear, No Respiratory Distress, No Accessory Muscle Use Cardiology: Yes: Regular Rhythm, Regular Rate, S1, S2 Abdominal: Yes: Non Tender, Soft, Protuberent Musculoskeletal: Yes: Gait Steady Extremities: Yes: Normal Range of Motion, Non-Tender Neurological: Yes: Fully Oriented, Alert, Motor Strength 5/5, Depressed Affect Integumentary: Yes: Warm - Diagnostic (1) Alcohol dependence with uncomplicated withdrawal Status: Acute (2) Cocaine dependence Status: Acute Qualifiers: Substance use status: uncomplicated Qualified Code(s): F14.20 - Cocaine dependence, uncomplicated (3) Nicotine dependence Status: Acute Qualifiers: Nicotine product type: cigarettes Substance use status: in withdrawal Qualified Code(s): F17.213 - Nicotine dependence, cigarettes, with withdrawal (4) Opioid dependence with withdrawal Status: Acute Breathalyzer - Breathalyzer Breathalyzer: 0 Urine Drug Screen - Test Device Lot number: [id number] Expiration date: 07/06/20 - Control Is test valid?: Yes - Results Drug screen NEGATIVE: No Urine drug screen results: ANTHONY-Cocaine, MOP-Opiates, BZO-Benzodiazepines, BUP- Suboxone Inpatient Rehab Admission - Rehab Decision to Admit Inpatient rehab admission?: No
[2018-10-12] MEDS ORDERED: cloNIDine HCL 0.1 MG TABLET PO PRN (19:29)
[2018-10-12] MEDS ORDERED: MAGNESIUM CITRATE 300 ML BOTTLE PO PRN (19:29)
[2018-10-12] MEDS ORDERED: MAGNESIUM HYDROX 2400MG/30ML ORAL SUSPENSION 30 ML CUP PO PRN (19:29)
[2018-10-12] MEDS ORDERED: IBUPROFEN 400 MG TABLET (FP) PO PRN (19:29)
[2018-10-12] MEDS ORDERED: MENTHOL/PHENOL 1 EACH UD MM PRN (19:29)
[2018-10-12] MEDS ORDERED: ACETAMINOPHEN 325 MG TABLET (FP) PO PRN ×2 (19:29)
[2018-10-12] MEDS ORDERED: MAG HYDROX/AL HYDROX/SIMETH 30 ML UNIT-DOSE CUP PO PRN (19:29)
[2018-10-12] MEDS ORDERED: BISMUTH SUBSALICYLATE 524 MG/30 ML UD PO PRN (19:29)
[2018-10-12] MEDS ORDERED: NICOTINE POLACRILEX 2 MG GUM BUC PRN (19:29)
[2018-10-12] MEDS ORDERED: diazePAM 5 MG TABLET PO ONE (20:45)
[2018-10-12] MEDS ORDERED: METHADONE HCL 10 MG TABLET (FOR DETOX USE ONLY) PO ONE (20:45)
[2018-10-12] MEDS: MELATONIN 5 MG TABLETS PO PRN (20:56)
[2018-10-12] MEDS: diazePAM 5 MG TABLET PO SCH (21:01)
[2018-10-12] MEDS: THIAMINE HCL 100 MG TABLET (FP) PO SCH (21:02)
[2018-10-13] MEDS: diazePAM 5 MG TABLET PO SCH ×3 (06:16→22:38)
[2018-10-13] MEDS ORDERED: METHADONE HCL 5 MG TABLET (FOR DETOX USE ONLY) PO ONE (10:00)
[2018-10-13 10:26] LABS: HEMATOCRIT 35.2 % (35.4-49); HEMOGLOBIN 11.5 GM/dL (11.7-16.9); MCH 28.7 pg (25.7-33.7); MCHC 32.6 g/dl (32.0-35.9); MEAN PLT VOLUME 8.9 fl (7.5-11.1); PLATELET COUNT 264 K/MM3 (134-434); RDW 14.6 % (11.9-15.9); WHITE BLOOD COUNT 3.7 K/mm3 (4.0-10.0)
[2018-10-13] MEDS: PRENATAL VITAMINS W/ FOLIC ACID TABLET (FP) PO SCH (10:26)
[2018-10-13 10:29] LABS: ALBUMIN 3.6 g/dl (3.4-5.0); BILIRUBIN,TOTAL 0.7 mg/dL (0.2-1); BLOOD UREA NITROGEN 10.7 mg/dL (7-18); CALCIUM 8.9 mg/dL (8.5-10.1); POTASSIUM 3.7 mmol/L (3.5-5.1); TOT PROT 6.6 g/dl (6.4-8.2)
[2018-10-13] MEDS: diazePAM 5 MG TABLET PO PRN ×2 (12:19→18:55)
--- NOTE | 2018-10-13 15:33 | PN ---
[facility] CIWA - CIWA Score Nausea/Vomitin-No Nausea/No Vomiting Muscle Tremors: 2 Anxiety: 4-Mod. Anxious/Guarded Agitation: 4-Moderately Restless Paroxysmal Sweats: 2 Orientation: 0-Oriented Tacttile Disturbances: 2-Mild Itch/Numbness/Burn Auditory Disturbances: 0-None Visual Disturbances: 0-None Headache: 0-None Present CIWA-Ar Total Score: 14 S COWS - Scale Resting Pulse: 0= [place] 80 or Below Sweatin= Chills/Flushing Restless Observation: 1= Difficult to Sit Still Pupil Size: 0= Normal to Room Light Bone or Joint Aches: 2= Severe Diffuse Aches Runny Nose/ Eye Tearin= None GI Upset > 30mins: 0= None Tremor Observation of Outstretched Hands: 2= Slight Tremor Visible Yawning Observation: 1= 1-2x During Session Anxiety or Irritability: 4=Extreme Anxiety Goose Flesh Skin: 0=Smooth Skin COWS Score: 11 S Progress Note (SOAP) Subjective: Tremors, anxious, Sweating, Body Aches. Objective: PATIENT A & O X 3, OBSERVED AMBULATING ON DETOX UNIT UNASSISTED. IN NO ACUTE DISTRESS. 10/13/18 15:31 Vital Signs Temperature 97.2 F L 10/13/18 13:40 Pulse Rate 60 10/13/18 13:40 Respiratory Rate 18 10/13/18 13:40 Blood Pressure 147/90 10/13/18 13:40 O2 Sat by Pulse Oximetry (%) Laboratory Tests 10/13/18 10/13/18 10/13/18 08:00 08:00 08:00 WBC 3.7 L RBC 4.00 Hgb 11.5 L Hct 35.2 L MCV 88.0 MCH 28.7 MCHC 32.6 RDW 14.6 Plt Count 264 MPV 8.9 Sodium 141 Potassium 3.7 Chloride 104 Carbon Dioxide 26 Anion Gap 11 BUN 10.7 Creatinine 1.0 Est GFR (CKD-EPI)AfAm 95.73 Est GFR (CKD-EPI)NonAf 82.60 Random Glucose 96 Calcium 8.9 Total Bilirubin 0.7 AST 12 L ALT 25 Alkaline Phosphatase 78 Total Protein 6.6 Albumin 3.6 RPR Titer Nonreactive LABS NOTED. Assessment: 10/13/18 15:31 WITHDRAWAL SYMPTOMS. HYPERTENSION. ANEMIA. 10/13/18 15:33 Plan: CONTINUE DETOX. PATIENT IS CURRENTLY RECEIVING DAILY MVI CONTAINING B VITAMINS AND IRON WHILE ADMITTED FOR DETOX.
[2018-10-13] MEDS: LISINOPRIL 10 MG TABLET (FP) PO SCH (15:53)
[2018-10-13] MEDS: hydrOXYzine PAMOATE 25 MG CAPSULE (FP) PO PRN (18:55)
[2018-10-13] MEDS: MELATONIN 5 MG TABLETS PO PRN (22:38)
[2018-10-13] MEDS: THIAMINE HCL 100 MG TABLET (FP) PO SCH (22:38)
[2018-10-14] MEDS: diazePAM 5 MG TABLET PO SCH ×2 (06:16→18:35)
--- NOTE | 2018-10-14 09:24 | CONSULT ---
[facility] Psychiatric Consult - Data Date of interview: 10/14/18 Admission source: self-referred Identifying data: Mr Madison is a 58 years old single Black male, father of a 25 years old son, unemployed reeiving [facility], domiciled seeking detox treatment for alcohol opioid and cocaine Substance Abuse History: Reports history of alcohol, heroin and cocaine use. Refer to addiction counselor's summary for further information Medical History: Significant for history of hypertension. 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 He reports being diagnosed with Bipolar Disorder more than 10 years ago while in longterm at [facility]. Reports 3 previous psychiatric hospitalizations at various facilities including [facility] and most recently late 2013 at [facility] in [place]. Reports seeing a private psychiatrist in [place], [place] and he is prescribed Neurontin 600 mg/bid and Seroquel 25 mg/hs. At present, reports feeling depressed, irritable and sleeping poorly Mental Status Exam - Mental Status Exam Alert and Oriented to: Time, Place, Person Cognitive Function: Fair Patient Appearance: Well Groomed Mood: Depressed, Irritable Affect: Appropriate Speech Pattern: Clear Voice Loudness: Normal Thought Process: Intact, Goal Oriented Hallucinations: Denies Suicidal Ideation: Denies Homicidal Ideation: Denies Insight/Judgement: Poor Sleep: Poorly Appetite: Poor Muscle strength/Tone: Normal Gait/Station: Normal Psychiatric Findings - Problem List ([place] 1, 2,3) (1) Bipolar disorder Current Visit: Yes Status: Chronic (2) Substance induced mood disorder Current Visit: Yes Status: Acute (3) Substance-induced sleep disorder Current Visit: Yes Status: Acute (4) Alcohol dependence with uncomplicated withdrawal Current Visit: Yes Status: Acute (5) Opioid dependence with withdrawal Current Visit: Yes Status: Acute (6) Cocaine dependence Current Visit: Yes Status: Acute Qualifiers: Substance use status: uncomplicated Qualified Code(s): F14.20 - Cocaine dependence, uncomplicated (7) Nicotine dependence Current Visit: Yes Status: Chronic Qualifiers: Nicotine product type: cigarettes Substance use status: in withdrawal Qualified Code(s): F17.213 - Nicotine dependence, cigarettes, with withdrawal (8) Hypertension Current Visit: No Status: Chronic Qualifiers: Hypertension type: essential hypertension Qualified Code(s): I10 - Essential (primary) hypertension Comment: not on medication bp 115/84 upon admission - Initial Treatment Plan Initial Treatment Plan: 1) Resume Gabapentin 600 mg po TID and Seroquel 25 mg o HS. 2) Continue inpatient detoxification
[2018-10-14] MEDS ORDERED: METHADONE HCL 10 MG TABLET (FOR DETOX USE ONLY) PO ONE (10:00)
[2018-10-14] MEDS: PRENATAL VITAMINS W/ FOLIC ACID TABLET (FP) PO SCH (10:20)
[2018-10-14] MEDS: LISINOPRIL 10 MG TABLET (FP) PO SCH (10:20)
[2018-10-14] MEDS: diazePAM 5 MG TABLET PO PRN ×3 (10:20→23:06)
--- NOTE | 2018-10-14 12:18 | PN ---
[facility] CIWA - CIWA Score Nausea/Vomitin-Mild Nausea/No Vomiting Muscle Tremors: 2 Anxiety: 3 Agitation: 2 Paroxysmal Sweats: 2 Orientation: 0-Oriented Tacttile Disturbances: 0-None Auditory Disturbances: 0-None Visual Disturbances: 0-None Headache: 0-None Present CIWA-Ar Total Score: 10 S COWS - Scale Resting Pulse: 0= [place] 80 or Below Sweatin= Chills/Flushing Restless Observation: 0= Sits Still Pupil Size: 0= Normal to Room Light Bone or Joint Aches: 1= Mild Discomfort Runny Nose/ Eye Tearin= Nasal Congestion GI Upset > 30mins: 2= Nausea/Diarrhea (no diarrhea) Tremor Observation of Outstretched Hands: 2= Slight Tremor Visible Yawning Observation: 1= 1-2x During Session Anxiety or Irritability: 2=Irritable/Anxious Goose Flesh Skin: 0=Smooth Skin COWS Score: 10 [facility] Progress Note (SOAP) Subjective: 58 years old [id number] patient [facility] admission since 2019 was admitted on 10/12/18 for alcohol and opiate withdrawal sx management doing well with valium and and methadone detox regimen tolerate food and fluid better ate 90% breakfast and lunch ambulating on [address] steady gait speech clearly coherently patient reported that he was in methadone program 100 mg po daily patient is question that methadone dosage is "going down" discuss seeking medication assisted treatment program as aftercare arrangement suggesting [facility] may begin suboxone Objective: 10/14/18 12:25 Vital Signs Temperature 97.2 F L 10/14/18 06:34 Pulse Rate 60 10/14/18 06:34 Respiratory Rate 18 10/14/18 07:06 Blood Pressure 90/65 10/14/18 06:34 O2 Sat by Pulse Oximetry (%) Laboratory Last Values WBC 3.7 K/mm3 (4.0-10.0) L 10/13/18 08:00 RBC 4.00 M/mm3 (4.00-5.60) 10/13/18 08:00 Hgb 11.5 GM/dL (11.7-16.9) L 10/13/18 08:00 Hct 35.2 % (35.4-49) L 10/13/18 08:00 MCV 88.0 fl (80-96) 10/13/18 08:00 MCH 28.7 pg (25.7-33.7) 10/13/18 08:00 MCHC 32.6 g/dl (32.0-35.9) 10/13/18 08:00 RDW 14.6 % (11.9-15.9) 10/13/18 08:00 Plt Count 264 K/MM3 (134-434) 10/13/18 08:00 MPV 8.9 fl (7.5-11.1) 10/13/18 08:00 Sodium 141 mmol/L (136-145) 10/13/18 08:00 Potassium 3.7 mmol/L (3.5-5.1) 10/13/18 08:00 Chloride 104 mmol/L (98-107) 10/13/18 08:00 Carbon Dioxide 26 mmol/L (21-32) 10/13/18 08:00 Anion Gap 11 MMOL/L (8-16) 10/13/18 08:00 BUN 10.7 mg/dL (7-18) 10/13/18 08:00 Creatinine 1.0 mg/dL (0.55-1.3) 10/13/18 08:00 Est GFR (CKD-EPI)AfAm 95.73 10/13/18 08:00 Est GFR (CKD-EPI)NonAf 82.60 10/13/18 08:00 Random Glucose 96 mg/dL (74-106) 10/13/18 08:00 Calcium 8.9 mg/dL (8.5-10.1) 10/13/18 08:00 Total Bilirubin 0.7 mg/dL (0.2-1) 10/13/18 08:00 AST 12 U/L (15-37) L 10/13/18 08:00 ALT 25 U/L (13-61) 10/13/18 08:00 Alkaline Phosphatase 78 U/L (45-117) 10/13/18 08:00 Total Protein 6.6 g/dl (6.4-8.2) 10/13/18 08:00 Albumin 3.6 g/dl (3.4-5.0) 10/13/18 08:00 RPR Titer Nonreactive (NONREACTIVE) 10/13/18 08:00 lab noted Assessment: 10/14/18 12:25 alcohol and opiate withdrawal sx alert oriented x 3 Plan: continue valium and methadone detox
[2018-10-14] MEDS: hydrOXYzine PAMOATE 25 MG CAPSULE (FP) PO PRN (13:05)
[2018-10-14] MEDS: THIAMINE HCL 100 MG TABLET (FP) PO SCH (23:05)
[2018-10-14] MEDS: MELATONIN 5 MG TABLETS PO PRN (23:06)
[2018-10-15] MEDS ORDERED: diazePAM 5 MG TABLET PO ONE ×2 (06:00→11:30)
[2018-10-15] MEDS ORDERED: METHADONE HCL 5 MG TABLET (FOR DETOX USE ONLY) PO ONE ×2 (06:00→11:45)
[2018-10-15] MEDS: LISINOPRIL 10 MG TABLET (FP) PO SCH (10:47)
[2018-10-15] MEDS: PRENATAL VITAMINS W/ FOLIC ACID TABLET (FP) PO SCH (10:47)
--- NOTE | 2018-10-15 11:12 | DS ---
[facility] Detox Discharge Summary Admission Date: 10/12/18 Discharge Date: 10/15/18 - History Present History: Alcohol Dependence, Opioid Dependence Additional Comments: methadone 5 mg not given re order methadone 5 mg one dose 58 years old male admitted on 10/12/18 for alcohol and opiate withdrawal sx management doing well with valium and methadone detox regimen consider returning to methadone program where he received 100mg po daily that opiate misuse was well managed case discussed with counselor for possible methadone assisted treatment program alert oriented x 3 speech clearly coherently steady gait denies dizziness no shortness of breath extremities full range of motion skin warm and dry Pertinent Past History: discuss alcohol related hypertension and nicotine related respiratory problems - Physical Exam Results Vital Signs: Vital Signs Temperature 97.1 F L 10/15/18 09:39 Pulse Rate 67 10/15/18 09:39 Respiratory Rate 18 10/15/18 09:39 Blood Pressure 119/79 10/15/18 09:39 O2 Sat by Pulse Oximetry (%) Pertinent Admission Physical Exam Findings: alcohol and opiate withdrawal sx Laboratory Last Values WBC 3.7 K/mm3 (4.0-10.0) L 10/13/18 08:00 RBC 4.00 M/mm3 (4.00-5.60) 10/13/18 08:00 Hgb 11.5 GM/dL (11.7-16.9) L 10/13/18 08:00 Hct 35.2 % (35.4-49) L 10/13/18 08:00 MCV 88.0 fl (80-96) 10/13/18 08:00 MCH 28.7 pg (25.7-33.7) 10/13/18 08:00 MCHC 32.6 g/dl (32.0-35.9) 10/13/18 08:00 RDW 14.6 % (11.9-15.9) 10/13/18 08:00 Plt Count 264 K/MM3 (134-434) 10/13/18 08:00 MPV 8.9 fl (7.5-11.1) 10/13/18 08:00 Sodium 141 mmol/L (136-145) 10/13/18 08:00 Potassium 3.7 mmol/L (3.5-5.1) 10/13/18 08:00 Chloride 104 mmol/L (98-107) 10/13/18 08:00 Carbon Dioxide 26 mmol/L (21-32) 10/13/18 08:00 Anion Gap 11 MMOL/L (8-16) 10/13/18 08:00 BUN 10.7 mg/dL (7-18) 10/13/18 08:00 Creatinine 1.0 mg/dL (0.55-1.3) 10/13/18 08:00 Est GFR (CKD-EPI)AfAm 95.73 10/13/18 08:00 Est GFR (CKD-EPI)NonAf 82.60 10/13/18 08:00 Random Glucose 96 mg/dL (74-106) 10/13/18 08:00 Calcium 8.9 mg/dL (8.5-10.1) 10/13/18 08:00 Total Bilirubin 0.7 mg/dL (0.2-1) 10/13/18 08:00 AST 12 U/L (15-37) L 10/13/18 08:00 ALT 25 U/L (13-61) 10/13/18 08:00 Alkaline Phosphatase 78 U/L (45-117) 10/13/18 08:00 Total Protein 6.6 g/dl (6.4-8.2) 10/13/18 08:00 Albumin 3.6 g/dl (3.4-5.0) 10/13/18 08:00 RPR Titer Nonreactive (NONREACTIVE) 10/13/18 08:00 lab noted - Treatment Hospital Course: Detox Protocol Followed, Detoxed Safely, Responded well, Discharged Condition Good, Rehab Referral Accepted Patient has Accepted a Rehab Referral to: medication assisted treatment program - Medication Discharge Medications: Ambulatory Orders Gabapentin 600 mg PO TID #90 tablet 03/03/16 Quetiapine Fumarate [Seroquel -] 25 mg PO HS #30 tablet 03/03/16 Lisinopril [Prinivil] 10 mg PO DAILY 10/12/18 - Diagnosis (1) Alcohol dependence with uncomplicated withdrawal Current Visit: Yes Status: Acute (2) Opioid dependence with withdrawal Current Visit: Yes Status: Acute (3) Substance induced mood disorder Current Visit: Yes Status: Suspected (4) Nicotine dependence Current Visit: Yes Status: Acute Qualifiers: Nicotine product type: cigarettes Substance use status: in withdrawal Qualified Code(s): F17.213 - Nicotine dependence, cigarettes, with withdrawal (5) Hypertension Current Visit: Yes Status: Chronic Qualifiers: Hypertension type: essential hypertension Qualified Code(s): I10 - Essential (primary) hypertension - AMA Did Patient Leave Against Medical Advice: No CIWA Score - CIWA Score Nausea/Vomitin-No Nausea/No Vomiting Muscle Tremors: 1-None Visible, but [place] Anxiety: 2 Agitation: 1-Slight > Activity Paroxysmal Sweats: No Perspiration Orientation: 0-Oriented Tacttile Disturbances: 0-None Auditory Disturbances: 0-None Visual Disturbances: 0-None Headache: 0-None Present CIWA-Ar Total Score: 4 COWS (PN) - Opiate Withdrawal Resting Pulse: 0= [place] 80 or Below Sweatin= Chills/Flushing Restless Observation: 0= Sits Still Pupil Size: 0= Normal to Room Light Bone or Joint Aches: 1= Mild Discomfort Runny Nose/ Eye Tearin= None GI Upset > 30mins: 0= None Tremor Observation of Outstretched Hands: 1= Tremor [place], Not Seen Yawning Observation: 1= 1-2x During Session Anxiety or Irritability: 1=Feels Anxious/Irritable Goose Flesh Skin: 0=Smooth Skin COWS Score: 5
[2018-10-15 14:30] VITALS: BP 131/83; PULSE 68; TEMP 98.6
== END 2018-10-15 15:27 | disposition home or self-care (01) | DRG 773 ==
LOC: YASAS 14:01 → Y3N 20:13
PROVIDERS: ADMIT Surgery; ATTEND Surgery
PROC: HZ2ZZZZ Detoxification Services for Substance Abuse Treatment (ICD-10-PCS; principal; 2018-10-12)
DX: F11.23 Opioid dependence with withdrawal (principal); F10.230 Alcohol dependence with withdrawal, uncomplicated; F14.20 Cocaine dependence, uncomplicated; F17.213 Nicotine dependence, cigarettes, with withdrawal; F19.24 Other psychoactive substance dependence with psychoactive substance-induced mood disorder; F19.282 Other psychoactive substance dependence with psychoactive substance-induced sleep disorder; F31.9 Bipolar disorder, unspecified; I10 Essential (primary) hypertension; D64.9 Anemia, unspecified
CPT/HCPCS: 36415; 80053; 85027; 86593; J0735

== ENCOUNTER 2019-08-20 19:06 | Inpatient (IN) | payer OTHER ==
[2019-08-20 19:40] VITALS: BMI 31.8
--- NOTE | 2019-08-20 20:45 | HP ---
COWS - Scale Resting Pulse: 0= [place] 80 or Below Sweatin= Chills/Flushing Restless Observation: 1= Difficult to Sit Still Pupil Size: 0= Normal to Room Light Bone or Joint Aches: 2= Severe Diffuse Aches Runny Nose/ Eye Tearin= Nasal Congestion GI Upset > 30mins: 2= Nausea/Diarrhea Tremor Observation: 0= None Yawning Observation: 0= None Anxiety or Irritability: 2=Irritable/Anxious Goose Flesh Skin: 0=Smooth Skin COWS Score: 9 CIWA Score Nausea/Vomitin Muscle Tremors: None Anxiety: 3 Agitation: 3 Paroxysmal Sweats: No Perspiration Orientation: 1-Uncertain about Date Tacttile Disturbances: 0-None Auditory Disturbances: 0-None Visual Disturbances: 2-Mild Sensitivity Headache: 0-None Present CIWA-Ar Total Score: 11 - Admission Criteria OASAS Guidelines: Admission for Medically Managed Detox: Requires at least one of the followin. CIWA greater than 12 2. Seizures within the past 24 hours 3. Delirium tremens within the past 24 hours 4. Hallucinations within the past 24 hours 5. Acute intervention needed for co occurring medical disorder 6. Acute intervention needed for co occurring psychiatric disorder 7. Severe withdrawal that cannot be handled at a lower level of care (continued vomiting, continued diarrhea, abnormal vital signs) requiring intravenous medication and/or fluids 8. Admitting History and Physical - Smoking History Smoking history: Current every day smoker Have you smoked in the past 12 months: Yes Aproximately how many cigarettes per day: 20 - Alcohol/Substance Use Hx Alcohol Use: Yes Admission ROS [facility] Allergies/Adverse Reactions: Allergies Allergy/AdvReac Type Severity Reaction Status Date / Time No Known Drug Allergies Allergy Verified 08/20/19 21:09 History of Present Illness: 58 y.o. pt requesting detox from etoh and heroin use , reports 6-pk /day since 1.5 years ago , denies seizures or blackouts , denies tremors latete use 4 am today . heroin use since age 22 - current daily use 7-8 bags/day via inhalation , denies IVDU , w/ intermittent periods of sobriety lasting between 6 months and 3 years , previous admission at this facility in 2019 , sober x 90 days afterwards. cocaine : 3-4 x /week , 50 $ 3 via inhalation tobacco : 1/2=1 ppd , requesting nrt w/ patch PMHX : htn previously on Lisinopril PShx : denies PSych : depression - Review of Systems Constitutional: Loss of Appetite EENT: reports: No Symptoms Reported Respiratory: reports: No Symptoms reported Cardiac: reports: No Symptoms Reported GI: reports: Constipated, Nausea, Poor Appetite, Abdominal cramping : reports: No Symptoms Reported Musculoskeletal: reports: Back Pain (chronic), Joint Pain (knees) Integumentary: reports: No Symptoms Reported Neuro: reports: No Symptoms reported Endocrine: reports: No Symptoms Reported Hematology: reports: No Symptoms Reported Psychiatric: reports: Agitated, Anxious, Disorientated Patient History - Patient Medical History Hx Anemia: No Hx Asthma: No Hx Chronic Obstructive Pulmonary Disease (COPD): No Hx Cancer: No Hx Cardiac Disorders: No Hx Congestive Heart Failure: No Hx Hypertension: Yes Hx Hypercholesterolemia: No Hx Pacemaker: No HX Cerebrovascular Accident: No Hx Seizures: No Hx Dementia: No Hx Diabetes: No Hx Gastrointestinal Disorders: No Hx Liver Disease: No Hx Genitourinary Disorders: No Hx Sexually Transmitted Disorders: No Hx Renal Disease (ESRD): No Hx Thyroid Disease: No Hx Human Immunodeficiency Virus (HIV): No (NEGATIVE 6 MONTHS AGO LAST 2014 NEGATIVE) Hx Hepatitis C: No Hx Depression: Yes Hx Suicide Attempt: No Hx Bipolar Disorder: No (denies) Hx Schizophrenia: No - Patient Surgical History Past Surgical History: No Hx Neurologic Surgery: No Hx Cataract Extraction: No Hx Cardiac Surgery: No Hx Lung Surgery: No Hx Breast Surgery: No Hx Breast Biopsy: No Hx Abdominal Surgery: No Hx Appendectomy: No Hx Cholecystectomy: No Hx Genitourinary Surgery: No Hx Section: No Hx Orthopedic Surgery: No Anesthesia Reaction: No - PPD History Date: 04/26/15 Results: 0MM - Smoking Cessation Smoking history: Current every day smoker Have you smoked in the past 12 months: Yes Aproximately how many cigarettes per day: 20 Cigars Per Day: 0 Hx Chewing Tobacco Use: No Initiated information on smoking cessation: Yes 'Breaking Loose' booklet given: 08/20/19 - Substances abused Heroin Substance route: Inhalation Frequency: Daily Amount used: 7 to 8 bags Age of first use: 21 Date of last use: 08/20/19 Cocaine Substance route: Smoking Frequency: 3-6 times per week Amount used: 300 $ / week Age of first use: 22 Date of last use: 08/19/19 Alcohol Substance route: Oral Frequency: 3-6 times per week Amount used: 6 packs of beer/ occ. liqour Age of first use: 14 Date of last use: 08/20/19 Admission Physical Exam BHS - Vital Signs Vital Signs: Vital Signs - 24 hr 08/20/19 19:39 Temperature 97.4 F L Pulse Rate 66 Respiratory 18 Rate Blood Pressure 127/77 - Physical General Appearance: Yes: Moderate Distress, Irritable, Anxious HEENTM: Yes: EOMI, Hearing grossly Normal, Normocephalic, Normal Voice, Other (left posterior cervical lipoma) Respiratory: Yes: Chest Non-Tender, Lungs Clear, Normal Breath Sounds, No Respiratory Distress, No Accessory Muscle Use Neck: Yes: No masses,lesions,Nodules, Trachea in good position Cardiology: Yes: Regular Rhythm, Regular Rate, S1, S2 Abdominal: Yes: Non Tender, Soft Back: Yes: Normal Inspection Musculoskeletal: Yes: Gait Steady, Back pain, Joint Stiffness (bilateral knees) Extremities: Yes: Normal Range of Motion, Non-Tender Neurological: Yes: Alert, Motor Strength 5/5, Depressed Affect Integumentary: Yes: Warm - Diagnostic (1) Alcohol dependence with uncomplicated withdrawal Current Visit: Yes Status: Chronic (2) Cocaine dependence Current Visit: Yes Status: Chronic Qualifiers: Substance use status: uncomplicated Qualified Code(s): F14.20 - Cocaine dependence, uncomplicated (3) Opioid dependence with withdrawal Current Visit: Yes Status: Chronic Breathalyzer - Breathalyzer Breathalyzer: 0 Urine Drug Screen - Test Device Lot number: [id number] Expiration date: 10/06/20 - Control Is test valid?: Yes - Results Drug screen NEGATIVE: No Urine drug screen results: ANTHONY-Cocaine, FEN-Fentanyl, MOP-Opiates, BUP-Suboxone Inpatient Rehab Admission - Rehab Decision to Admit Inpatient rehab admission?: No
[2019-08-20] MEDS ORDERED: METHOCARBAMOL 500 MG TABLET PO PRN (21:05)
[2019-08-20] MEDS ORDERED: hydrOXYzine PAMOATE 25 MG CAPSULE (FP) PO PRN (21:05)
[2019-08-20] MEDS ORDERED: MAG HYDROX/AL HYDROX/SIMETH 30 ML UNIT-DOSE CUP PO PRN (21:05)
[2019-08-20] MEDS ORDERED: ACETAMINOPHEN 325 MG TABLET (FP) PO PRN ×2 (21:05)
[2019-08-20] MEDS ORDERED: BISMUTH SUBSALICYLATE 524 MG/30 ML UD PO PRN (21:05)
[2019-08-20] MEDS ORDERED: IBUPROFEN 400 MG TABLET (FP) PO PRN (21:05)
[2019-08-20] MEDS ORDERED: MAGNESIUM CITRATE 300 ML BOTTLE PO PRN (21:05)
[2019-08-20] MEDS ORDERED: MAGNESIUM HYDROX 2400MG/30ML ORAL SUSPENSION 30 ML CUP PO PRN (21:05)
[2019-08-20] MEDS ORDERED: MENTHOL/PHENOL 1 EACH UD MM PRN (21:05)
[2019-08-20] MEDS ORDERED: METHADONE HCL 10 MG TABLET (FOR DETOX USE ONLY) PO ONE (21:09)
[2019-08-20] MEDS ORDERED: cloNIDine HCL 0.1 MG TABLET PO PRN (21:09)
[2019-08-20] MEDS: THIAMINE HCL 100 MG TABLET (FP) PO SCH (22:38)
[2019-08-20] MEDS: diazePAM 5 MG TABLET PO SCH (22:38)
[2019-08-20] MEDS: MELATONIN 5 MG TABLETS PO PRN (22:40)
[2019-08-21] MEDS: diazePAM 5 MG TABLET PO SCH ×3 (05:25→22:10)
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
--- NOTE | 2019-08-21 09:35 | EKG ---
Test Reason : Blood Pressure : / mmHG Vent. Rate : 072 BPM Atrial Rate : 072 BPM P-R Int : 190 ms QRS Dur : 078 ms QT Int : 400 ms P-R-T Axes : 065 052 044 degrees QTc Int : 438 ms NORMAL SINUS RHYTHM NORMAL ECG WHEN COMPARED WITH ECG OF 02-MAR-2016 21:03, NO SIGNIFICANT CHANGE WAS FOUND Confirmed by MD RANDOLPH MOYSES ([id number]) on 08/21/2019 9:34:57 AM Referred By: Confirmed By:DIAMOND RANDOLPH MD
[2019-08-21] MEDS: NICOTINE 14 MG/24 HOURS TOPICAL PATCH TD SCH (09:39)
[2019-08-21] MEDS: PRENATAL VITAMINS W/ FOLIC ACID TABLET (FP) PO SCH (09:39)
[2019-08-21] MEDS: diazePAM 5 MG TABLET PO PRN (09:39)
[2019-08-21] MEDS: LISINOPRIL 10 MG TABLET (FP) PO SCH (09:39)
[2019-08-21] MEDS ORDERED: METHADONE HCL 5 MG TABLET (FOR DETOX USE ONLY) PO ONE (10:00)
--- NOTE | 2019-08-21 11:15 | PN ---
S CIWA - CIWA Score Nausea/Vomitin-Mild Nausea/No Vomiting Muscle Tremors: 3 Anxiety: 3 Agitation: 0-Normal Activity Paroxysmal Sweats: 2 Orientation: 0-Oriented Tacttile Disturbances: 1-Very Mild Itch/Numbness Auditory Disturbances: 0-None Visual Disturbances: 2-Mild Sensitivity Headache: 0-None Present CIWA-Ar Total Score: 12 S COWS - Scale Resting Pulse: 0= [place] 80 or Below Sweatin= Chills/Flushing Restless Observation: 0= Sits Still Pupil Size: 1= Pupils >than Normal Bone or Joint Aches: 1= Mild Discomfort Runny Nose/ Eye Tearin= None GI Upset > 30mins: 2= Nausea/Diarrhea Tremor Observation of Outstretched Hands: 2= Slight Tremor Visible Yawning Observation: 0= None Anxiety or Irritability: 1=Feels Anxious/Irritable Goose Flesh Skin: 0=Smooth Skin COWS Score: 8 S Progress Note (SOAP) Subjective: 58 years old male admitted on 08/21/19 for alcohol and opiate withdrawal sx management treating with valium and methadone detox regiment ate breakfast in room resting in bed limited conversation with staff Objective: 08/21/19 11:21 Vital Signs - 24 hr 08/20/19 08/20/19 08/20/19 19:39 21:13 21:49 Temperature 97.4 F L 97.4 F L Pulse Rate 66 60 Respiratory 18 18 Rate Blood Pressure 127/77 127/77 O2 Sat by Pulse 100 Oximetry (%) 08/20/19 08/21/19 08/21/19 22:05 06:14 08:30 Temperature 97.3 F L 97.3 F L 96.9 F L Pulse Rate 70 55 L 68 Respiratory 18 18 18 Rate Blood Pressure 143/89 100/64 112/67 O2 Sat by Pulse 97 97 Oximetry (%) Laboratory Tests 08/21/19 07:30 WBC 3.3 L RBC 4.13 Hgb 11.4 L Hct 36.3 MCV 87.9 MCH 27.6 MCHC 31.4 L RDW 14.4 Plt Count 220 MPV 9.0 08/21/19 11:22 lab pending Assessment: 08/21/19 11:22 alcohol and opiate withdrawal Plan: valium and methadone regiment
[2019-08-21 11:17] LABS: HEMATOCRIT 36.3 % (35.4-49); HEMOGLOBIN 11.4 GM/dL (11.7-16.9); MCH 27.6 pg (25.7-33.7); MCHC 31.4 g/dl (32.0-35.9); MEAN CELL VOLUME 87.9 fl (80-96); PLATELET COUNT 220 K/MM3 (134-434); RBC 4.13 M/mm3 (4.00-5.60); RDW 14.4 % (11.9-15.9); WHITE BLOOD COUNT 3.3 K/mm3 (4.0-10.0)
[2019-08-21 11:45] LABS: ALBUMIN 3.4 g/dl (3.4-5.0); BILIRUBIN,TOTAL 0.6 mg/dL (0.2-1); BLOOD UREA NITROGEN 11.4 mg/dL (7-18); CALCIUM 8.7 mg/dL (8.5-10.1); CREATININE 0.9 mg/dL (0.55-1.3); POTASSIUM 4.1 mmol/L (3.5-5.1); TOT PROT 6.3 g/dl (6.4-8.2)
[2019-08-21] MEDS: THIAMINE HCL 100 MG TABLET (FP) PO SCH (22:10)
[2019-08-21] MEDS: QUEtiapine FUMARATE 50 MG TABLET PO SCH (22:10)
[2019-08-22] MEDS: diazePAM 5 MG TABLET PO SCH ×2 (06:00→17:48)
[2019-08-22] MEDS ORDERED: METHADONE HCL 10 MG TABLET (FOR DETOX USE ONLY) PO ONE (10:00)
[2019-08-22] MEDS: NICOTINE 14 MG/24 HOURS TOPICAL PATCH TD SCH (10:35)
[2019-08-22] MEDS: PRENATAL VITAMINS W/ FOLIC ACID TABLET (FP) PO SCH (10:35)
[2019-08-22] MEDS ORDERED: MASKS NR ONE (10:37)
[2019-08-22] MEDS: LISINOPRIL 10 MG TABLET (FP) PO SCH (10:37)
--- NOTE | 2019-08-22 11:15 | PN ---
[facility] CIWA - CIWA Score Nausea/Vomitin-Mild Nausea/No Vomiting Muscle Tremors: 1-None Visible, but [place] Anxiety: 1-Mildly Anxious Agitation: 1-Slight > Activity Paroxysmal Sweats: No Perspiration Orientation: 0-Oriented Tacttile Disturbances: 0-None Auditory Disturbances: 0-None Visual Disturbances: 2-Mild Sensitivity Headache: 1-Very Mild CIWA-Ar Total Score: 7 S COWS - Scale Resting Pulse: 0= [place] 80 or Below Sweatin= No chills or Flushing Restless Observation: 0= Sits Still Pupil Size: 0= Normal to Room Light Bone or Joint Aches: 1= Mild Discomfort Runny Nose/ Eye Tearin= None GI Upset > 30mins: 2= Nausea/Diarrhea Tremor Observation of Outstretched Hands: 1= Tremor [place], Not Seen Yawning Observation: 0= None Anxiety or Irritability: 1=Feels Anxious/Irritable Goose Flesh Skin: 0=Smooth Skin COWS Score: 5 S Progress Note (SOAP) Subjective: 58 years old male admitted on 08/20/19 for alcohol and opiate withdrawal sx management treating with valium and methadone regiments feeling better today less tremor mild restlessness discussing aftercare with staff mr dominguez prefers [facility] as recovery center encourage the patient to consider medication assisted treatment program and meat pickler narcan from pharmacy upon discharge Objective: 08/22/19 11:17 Vital Signs - 24 hr 08/21/19 08/21/19 08/21/19 12:40 16:45 20:40 Temperature 96.9 F L 97.3 F L 97.3 F L Pulse Rate 67 66 71 Respiratory 18 16 16 Rate Blood Pressure 121/83 132/80 138/86 O2 Sat by Pulse 99 99 99 Oximetry (%) 08/22/19 08/22/19 06:22 09:01 Temperature 97.1 F L 97.3 F L Pulse Rate 61 68 Respiratory 18 20 Rate Blood Pressure 103/67 94/60 O2 Sat by Pulse 97 Oximetry (%) Laboratory Tests 08/20/19 08/21/19 08/21/19 21:35 07:30 07:30 WBC 3.3 L RBC 4.13 Hgb 11.4 L Hct 36.3 MCV 87.9 MCH 27.6 MCHC 31.4 L RDW 14.4 Plt Count 220 MPV 9.0 Sodium Potassium Chloride Carbon Dioxide Anion Gap BUN Creatinine Est GFR (CKD-EPI)AfAm Est GFR (CKD-EPI)NonAf Random Glucose Calcium Total Bilirubin AST ALT Alkaline Phosphatase Total Protein Albumin Syphilis Serology Reactive A* RPR Titer COVID-19 (CARLOS) Not detected 08/21/19 08/21/19 07:30 07:30 WBC RBC Hgb Hct MCV MCH MCHC RDW Plt Count MPV Sodium 141 Potassium 4.1 Chloride 106 Carbon Dioxide 28 Anion Gap 6 L BUN 11.4 Creatinine 0.9 Est GFR (CKD-EPI)AfAm 108.73 Est GFR (CKD-EPI)NonAf 93.82 Random Glucose 93 Calcium 8.7 Total Bilirubin 0.6 AST 11 L ALT 15 Alkaline Phosphatase 64 Total Protein 6.3 L Albumin 3.4 Syphilis Serology RPR Titer Reactive 1:1 H D COVID-19 (CARLOS) lab noted Assessment: 08/22/19 11:18 alcohol and opiate withdrawal 08/22/19 11:18 hypertension Plan: valium and methadone regiments lisinopril 10 mg po daily set parameter to hole when systolic below 110
[2019-08-22] MEDS ORDERED: LISINOPRIL 10 MG TABLET (FP) PO SCH (11:18)
[2019-08-22] MEDS: QUEtiapine FUMARATE 50 MG TABLET PO SCH (22:08)
[2019-08-22] MEDS: THIAMINE HCL 100 MG TABLET (FP) PO SCH (22:08)
[2019-08-22] MEDS: diazePAM 5 MG TABLET PO PRN (22:08)
[2019-08-22] MEDS: MELATONIN 5 MG TABLETS PO PRN (22:09)
[2019-08-23] MEDS ORDERED: METHADONE HCL 5 MG TABLET (FOR DETOX USE ONLY) PO ONE (06:00)
[2019-08-23] MEDS ORDERED: diazePAM 5 MG TABLET PO ONE (06:00)
[2019-08-23 06:28] VITALS: BP 108/72; PULSE 53; TEMP 97.6
[2019-08-23] MEDS: PRENATAL VITAMINS W/ FOLIC ACID TABLET (FP) PO SCH (10:25)
[2019-08-23] MEDS: NICOTINE 14 MG/24 HOURS TOPICAL PATCH TD SCH (10:25)
--- NOTE | 2019-08-23 11:52 | DS ---
[facility] Detox Discharge Summary Admission Date: 08/20/19 - History Present History: Alcohol Dependence, Opioid Dependence - Physical Exam Results Vital Signs: Vital Signs Temperature 97.6 F 08/23/19 06:28 Pulse Rate 53 L 08/23/19 06:28 Respiratory Rate 18 08/23/19 06:28 Blood Pressure 108/72 08/23/19 06:28 O2 Sat by Pulse Oximetry (%) 100 08/23/19 06:28 Pertinent Admission Physical Exam Findings: 58 y.o. pt requesting detox from etoh and heroin use , reports 6-pk /day since 1.5 years ago , denies seizures or blackouts , denies tremors latete use 4 am today . heroin use since age 22 - current daily use 7-8 bags/day via inhalation , denies IVDU , w/ intermittent periods of sobriety lasting between 6 months and 3 years , previous admission at this facility in 2019 , sober x 90 days afterwards. cocaine : 3-4 x /week , 50 $ 3 via inhalation tobacco : 1/2=1 ppd , requesting nrt w/ patch PMHX : htn previously on Lisinopril PShx : denies PSych : depression PE Gnl: WDWN, in no distress MS: awake, alert, nl mentation Motor: moves well Gait: steady Coordination: nl Laboratory Tests 08/20/19 08/21/19 08/21/19 21:35 07:30 07:30 WBC 3.3 L RBC 4.13 Hgb 11.4 L Hct 36.3 MCV 87.9 MCH 27.6 MCHC 31.4 L RDW 14.4 Plt Count 220 MPV 9.0 Sodium Potassium Chloride Carbon Dioxide Anion Gap BUN Creatinine Est GFR (CKD-EPI)AfAm Est GFR (CKD-EPI)NonAf Random Glucose Calcium Total Bilirubin AST ALT Alkaline Phosphatase Total Protein Albumin Syphilis Serology Reactive A* RPR Titer COVID-19 (CARLOS) Not detected 08/21/19 08/21/19 07:30 07:30 WBC RBC Hgb Hct MCV MCH MCHC RDW Plt Count MPV Sodium 141 Potassium 4.1 Chloride 106 Carbon Dioxide 28 Anion Gap 6 L BUN 11.4 Creatinine 0.9 Est GFR (CKD-EPI)AfAm 108.73 Est GFR (CKD-EPI)NonAf 93.82 Random Glucose 93 Calcium 8.7 Total Bilirubin 0.6 AST 11 L ALT 15 Alkaline Phosphatase 64 Total Protein 6.3 L Albumin 3.4 Syphilis Serology RPR Titer Reactive 1:1 H D COVID-19 (CARLOS) Vital Signs Temperature 97.6 F 08/23/19 06:28 Pulse Rate 53 L 08/23/19 06:28 Respiratory Rate 18 08/23/19 06:28 Blood Pressure 108/72 08/23/19 06:28 O2 Sat by Pulse Oximetry (%) 100 08/23/19 06:28 - Treatment Hospital Course: Detox Protocol Followed, Detoxed Safely, Responded well, Discharged Condition Good, Rehab Referral Accepted Patient has Accepted a Rehab Referral to: [facility] - Medication Discharge Medications: Ambulatory Orders Gabapentin 600 mg PO TID #90 tablet 03/03/16 Quetiapine Fumarate [Seroquel -] 25 mg PO HS #30 tablet 03/03/16 Lisinopril [Prinivil] 10 mg PO DAILY 10/12/18 Naloxone HCl [Narcan] 4 mg NS ASDIR PRN #1 spray 08/22/19
== END 2019-08-23 09:18 | disposition other institution (70) | DRG 773 ==
LOC: YASAS 19:06 → Y3N 20:54
PROVIDERS: ADMIT Allergy & Immunology; ATTEND Allergy & Immunology
PROC: HZ2ZZZZ Detoxification Services for Substance Abuse Treatment (ICD-10-PCS; principal; 2019-08-20)
DX: F10.230 Alcohol dependence with withdrawal, uncomplicated (principal); F11.23 Opioid dependence with withdrawal; F14.20 Cocaine dependence, uncomplicated; F17.213 Nicotine dependence, cigarettes, with withdrawal; F19.282 Other psychoactive substance dependence with psychoactive substance-induced sleep disorder; F31.9 Bipolar disorder, unspecified; I10 Essential (primary) hypertension; Z20.2 Contact with and (suspected) exposure to infections with a predominantly sexual mode of transmission
CPT/HCPCS: 36415; 80053; 85027; 86593; 86780; 93005; 93010; U0003